=== PATIENT | female | born 1980 ===

== ENCOUNTER 2021-07-19 08:58 | Day surgery (SDC) | payer BC ==
[2021-07-19] MEDS ORDERED: Midazolam 1 MG/ML 2 ML SDV IV ONE (08:59)
[2021-07-19] MEDS ORDERED: Propofol 200 MG/20 ML SDV IV ONE (08:59)
[2021-07-19] MEDS ORDERED: Lidocaine 2% 100 MG/5 ML Syringe IVPUSH ONE (08:59)
[2021-07-19] MEDS ORDERED: Lactated Ringers 1,000 ML IV SCH (09:00)
[2021-07-19] MEDS ORDERED: Sodium Chloride 0.9% 10 ML Syringe FLUSH PRN (09:00)
== END 2021-07-19 11:15 | disposition home or self-care (01) ==
LOC: FB.SDS 08:58
PROVIDERS: ATTEND Surgery
DX: K29.70 Gastritis, unspecified, without bleeding (principal); K21.9 Gastro-esophageal reflux disease without esophagitis; R13.10 Dysphagia, unspecified; Z79.899 Other long term (current) drug therapy; Z98.890 Other specified postprocedural states
CPT/HCPCS: 00731; 43239; 88305; 88342; J2250; J2704; J7120